=== PATIENT | female | born 1955 | race Hispanic/Latino ===

== ENCOUNTER 2019-03-02 10:34 | Emergency (ER) | payer MEDICARE, OTHER ==
[~2019-03-02] VITALS: Ht 160 cm; Wt 113.4 kg
--- OUTSIDE RECORDS SUMMARY | 2019-03-02 10:36 | XMS REPORT ---
Author Author [facility] Address Unknown Phone Unavailable Care Team Providers Care Logistics Intern Name Role Phone LISHA PEREZ Unavailable Unavailable Problems This patient has no known problems. Allergies, Adverse Reactions, Alerts This patient has no known allergies or adverse reactions. Medications This patient has no known medications. Results Test Description Test Time Test Comments Text Results Atomic Results Result Comments US RENAL RETROPERITONEAL COMP [place] [address] Patient Name: JACKIE AMOS MR #: [id number] : 1955 Age/Sex: 62/F Req #: [id number] Adm Physician: Ordered by: LISHA PEREZ MD Report #: [id number] Location: Room/Bed: Procedure: [id number] US/US RENAL RETROPERITONEAL COMP Exam Date: 09/16/17 Exam Time: 943 REPORT STATUS: Signed PROCEDURE: US RETROPERITONEAL ( KIDNEY ). COMPARISON: None. INDICATIONS: Microscopic Hematuria TECHNIQUE: Horton-scale and color sonographic images of the bilateral kidneys and bladder where obtained in transverse and longitudinal planes. Limited examination secondary to increased body habitus. FINDINGS: RIGHT KIDNEY: 11.4 cm, cortex 2.0 cm Cysts: None. Solid masses: None. Stones: None. Hydronephrosis: None. Echogenicity: Normal. LEFT KIDNEY: 11.9 cm, cortex 2.3 cm Cysts: 3.9 x 2.8 x 3.4 cm simple cyst in the superior pole. Solid masses: None. Stones: None. Hydronephrosis: None. Echogenicity: Normal. Bladder: Normal contour. Bilateral ureter jets are visualized. CONCLUSION: No acute sonographic abnormality. Dictated by: Jc Grimm M.D. on 017 at 12:17 Electronically approved by: Jc Grimm M.D. on 09/16/2017 at 12:17 Dictated By: JC GRIMM MD [id number] Transcribed By: JEN on 09/16/177 COPY TO: LISHA PEREZ MD
--- OUTSIDE RECORDS SUMMARY | 2019-03-02 10:36 | XMS REPORT | Clinical Summary ---
Author Author [facility] Address Unknown Phone Unavailable Care Team Providers Care Silviculture Forester Name Role Phone Titus Winchester MD PCP Allergies Comments Active Allergy Reactions Severity Noted Date Patient states she is not allergic, medication makes her stomach burn Penicillins GI 01/03/2019 Intolerance Medications End Date Status Medication Sig Dispensed Refills Start Date Active losartan (COZAAR) 100 MG Take 100 mg 0 tablet by mouth daily. Active metFORMIN (GLUCOPHAGE) Take 500 mg 0 500 mg tablet by mouth 2 (two) times a day with meals. Active simvastatin (ZOCOR) 10 MG Take 10 mg by 0 tablet mouth nightly. Active esomeprazole (NexIUM) 20 Take 20 mg by 0 MG capsule mouth daily before breakfast. Active PARoxetine (PAXIL) 10 MG Take 10 mg by 0 tablet mouth every morning. Active Problems Not on file Encounters Care Team Description Date Type Specialty Yue Chairez NP 01/03/2019 Anesthesia Gastroenterology Event Angelito Ruiz MD ESOPHAGOGASTRODUODENOSCOPY (EGD) 01/03/2019 Surgery Gastroenterology Angelito ayala MD GERD without esophagitis; Abdominal pain, RUQ 01/03/2019 Hospital Gastroenterology Encounter after 03/01/2018 Family History Medical History Relation Name Comments Cancer Mother uterine Relation Name Status Comments Mother uterine Social History Date Tobacco Use Types Packs/Day Years Used Never Smoker Smokeless Tobacco: Never Used Alcohol Use Drinks/Week oz/Week Comments No Alcohol Habits Answer Date Recorded How often do you have a drink containing alcohol? Never 01/03/2019 How many drinks containing alcohol do you have on Not asked a typical day when you are drinking? How often do you have six or more drinks on one Not asked occasion? Sex Assigned at Date Recorded Not on file Industry Job Start Date Occupation Not on file Not on file Not on file Travel End Travel History Travel Start No recent travel history available. Last Filed Vital Signs Time Taken Vital Sign Reading 01/03/2019 8:40 AM HAND GRINDER Blood Pressure 120/74 01/03/2019 8:40 AM HAND GRINDER Pulse 64 01/03/2019 8:09 AM HAND GRINDER Temperature 36.4 C (97.5 F) 01/03/2019 7:17 AM HAND GRINDER Respiratory Rate 18 01/03/2019 8:40 AM HAND GRINDER Oxygen Saturation 95% - Inhaled Oxygen - Concentration - Weight - 01/03/2019 7:17 AM HAND GRINDER Height 162.6 cm (5' 4") - Body Mass Index - Plan of Treatment Not on file Procedures Comments Procedure Name Priority Date/Time Associated Diagnosis SURGICAL PATHOLOGY Routine 01/03/2019 REQUEST 1:43 PM HAND GRINDER ESOPHAGOGASTRODUODENOSCOP 01/03/2019 GERD without esophagitis Y (EGD) 7:30 AM HAND GRINDER Abdominal pain, RUQ POC GLUCOSE Routine 01/03/2019 7:21 AM HAND GRINDER after 03/01/2018 Results * Surgical pathology request (01/03/2019 1:43 PM HAND GRINDER) [facility] DEPARTMENT OF PATHOLOGY AND GENOMIC MEDICINE Surgical pathology report See link below for PDF Lab [facility] DEPARTMENT OF Report PATHOLOGY AND GENOMIC MEDICINE Result status This is Final Report for [facility] DEPARTMENT OF [id number] PATHOLOGY AND GENOMIC MEDICINE Performing Organization Address City/State/[facility] [place] [address] PATHOLOGY AND GENOMIC MEDICINE * POC glucose (01/03/2019 7:21 AM HAND GRINDER) POC glucose 94 65 - 99 mg/dL [place] Comment: [facility] Meter ID: [id number] Field Identification Specialist: Ricki Doss Performing Organization Address City/State/Zipcode Phone Number [address] [address] PATHOLOGY AND GENOMIC MEDICINE [place] after 03/01/2018 Insurance Payer Benefit Subscriber ID Type Phone Address Plan / Group AETNA MEDICARE AETNA xxxxxxxx HMO MEDICARE HMO/PPO [facility] Advance Directives Patient has advance care planning documents on file. For more information, arnold rajan contact: [place] [address] [place] [address]
[2019-03-02] MEDS ORDERED: ONDANSETRON HCL INJ 2MG/ML 2ML 2 MG/ML VIAL IV STA ×2 (10:47→13:53)
[2019-03-02] MEDS ORDERED: KETOROLAC TROMETHAMINE 30 MG/ML VIAL IV STA (10:47)
[2019-03-02 11:49] LABS: CLARITY,URINE CLEAR (CLEAR); COLOR,URINE YELLOW (YELLOW)
[2019-03-02 11:50] LABS: BILIRUBIN,URINE NEGATIVE (NEGATIVE); KETONES,URINE NEGATIVE (NEGATIVE); LEUKOCYTE ESTERASE ,URINE NEGATIVE (NEGATIVE); NITRITE,URINE NEGATIVE (NEGATIVE); PROTEIN,URINE DIPSTICK NEGATIVE (NEGATIVE); URINE UROBILINOGEN 0.2 mg/dL (0.2 - 1)
[2019-03-02 12:00] LABS: BACTERIA,URINE RARE /HPF; EPITHELIAL CELLS,URINE RARE /LPF; RBC,URINE 0-5 /HPF (0-5)
[2019-03-02 12:01] LABS: BASOPHILS % 0.5 % (0.0-1.0); EOSINOPHILS # (AUTO) 0.1 (0.0-0.4); EOSINOPHILS % 1.8 % (0.0-6.0); HEMATOCRIT 42.8 % (34.2-44.1); LYMPHOCYTES # (AUTO) 1.5 (1.0-3.2); LYMPHOCYTES % 23.9 % (18.0-39.1); MEAN CORPUSCULAR HEMOGLOBIN 28.2 pg (28-32); MEAN CORPUSCULAR HGB CONC 32.7 g/dL (31-35); MEAN CORPUSCULAR VOLUME 86.3 fL (81-99); MONOCYTES # (AUTO) 0.5 (0.2-0.8); MONOCYTES % 8.7 % (4.4-11.3); NEUTROPHILS % 64.9 % (38.7-80.0); PLATELET COUNT 224 x10e3/uL (140-360); RED BLOOD COUNT 4.96 x10e6/uL (3.6-5.1); RED CELL DISTRIBUTION WIDTH 14.6 % (11.7-14.4)
--- NOTE | 2019-03-02 12:40 | Diagnostic Imaging Report ---
EXAM: CT Abdomen and Pelvis WITHOUT contrast INDICATION: Abdominal pain, query renal stone. COMPARISON: None. TECHNIQUE: Abdomen and pelvis were scanned utilizing a multidetector helical scanner from the lung base to the pubic symphysis without administration of IV contrast. Absence of intravenous contrast decreases sensitivity for detection of focal lesions and vascular pathology. Coronal and sagittal reformations were obtained. Renal stone protocol was performed. IV CONTRAST: None. ORAL CONTRAST: Water RADIATION DOSE: Total DLP: 750.9 mGy*cm Estimated effective dose: (DLP x 0.015 x size factor) mSv Dose modulation, iterative reconstruction, and/or weight based adjustment of the mA/kV was utilized to reduce the radiation dose to as low as reasonably achievable. COMPLICATIONS: None FINDINGS: LINES and TUBES: None. LOWER THORAX: Patchy dependent atelectasis. HEPATOBILIARY: Diffuse mild fatty liver. Subcentimeter left hepatic lobe hypodensity is too small to characterize, but likely represents a cyst. No biliary ductal dilation. GALLBLADDER: No radio-opaque stones or sludge. No wall thickening. SPLEEN: No splenomegaly. PANCREAS: No focal masses or ductal dilatation. ADRENALS: No adrenal nodules KIDNEYS/URETERS: No hydronephrosis. No evidence of solid mass. There is a simple left upper pole cyst, measuring up to 3 cm. No stones. GI TRACT: No abnormal distention, wall thickening, or evidence of bowel obstruction. Appendix is normal. Small sliding hiatal hernia. There is scattered colonic diverticulosis without CT evidence of diverticulitis. PELVIC ORGANS/BLADDER: The uterus is absent. The bladder is partially decompressed. LYMPH NODES: No lymphadenopathy. VESSELS: There are scattered atherosclerotic calcifications in the aorta and branch vessels. PERITONEUM / RETROPERITONEUM: No free air or fluid. BONES: No acute osseous abnormality. No suspicious lytic or blastic lesions. 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 SOFT TISSUES: Unremarkable. IMPRESSION: No evidence of renal stone. Diffuse mild fatty liver. Small hiatal hernia. Signed by: Dr. Tracee Avilez MD on 03/02/2019 12:37 PM
[2019-03-02 12:48] LABS: ANION GAP 10.5 mmol/L (8-16); BLOOD UREA NITROGEN 12 mg/dL (7-26); BUN/CREATININE RATIO 14 (6-25); CALCIUM 9.6 mg/dL (8.4-10.2); CARBON DIOXIDE 28 mmol/L (22-29); CHLORIDE 102 mmol/L (98-107); CREATININE, SERUM 0.88 mg/dL (0.57-1.11); EST GLOMERULAR FILTRATION RATE > 60 ML/MIN (60-); GLUCOSE 99 mg/dL (74-118); POTASSIUM 4.5 mmol/L (3.5-5.1); SODIUM 136 mmol/L (136-145)
[2019-03-02] MEDS ORDERED: MORPHINE SULFATE 2 MG/ML SYR 1ML IV STA (13:53)
[2019-03-02] MEDS ORDERED: MORPHINE SULFATE INJ 4 MG/ML INJ 1ML IV NR (14:15)
[2019-03-02 14:19] VITALS: BP 136/73
== END 2019-03-02 14:35 | disposition home or self-care (01) ==
LOC: ER 10:34
DX: M54.5 Low back pain (principal); R10.31 Right lower quadrant pain; N30.90 Cystitis, unspecified without hematuria; S39.012A Strain of muscle, fascia and tendon of lower back, initial encounter
CPT/HCPCS: 36415; 74176; 80048; 81001; 85025; 87086; 96374; 96375; 99284; J1885; J2405